=== PATIENT | male | born 1975 | race Caucasian/White ===

== ENCOUNTER 2016-10-20 09:52 | Emergency (ER) | payer OTHER ==
[~2016-10-20] VITALS: Ht 180.3 cm; Wt 136.5 kg
--- NOTE | ~2016-10-20 | EKG ---
[place] [address] [facility] [place] [address] ELECTROCARDIOGRAM REPORT Name: MOHINI COX Room #: DEP ANDALUSIA HEALTHYisel#: [id number] Admission: 10/20/16 Attend Phys: Discharge: 10/20/16 Date of : 71 Report #: [id number] THIS REPORT FOR: //name// [facility] ED Test Date: 2016-10-20 Test Time: 10:23:49 Pat Name: MOHINI COX Department: Room: Gender: M [employer] Coordinator: MZOOK : 1975 Requested By: Vesna Méndez Order Number: [id number] MD: Willard Robbins Measurements Intervals [place] Rate: 98 P: 30 LA: 152 QRS: -16 QRSD: 88 T: 108 QT: 371 QTc: 474 Interpretive Statements Sinus rhythm Probable left atrial enlargement LVH with secondary repolarization abnormality Anterior ST elevation, probably due to LVH No previous ECG available for comparison Electronically Signed On 10-20-2016 14:32:50 CDT by Willard Robbins [email or web address] <ELECTRONICALLY SIGNED> By: Willard Robbins MD 10/20/16 1432 1023 102 Willard Robbins MD /DRE
[2016-10-20 11:05] LABS: ABSOLUTE NEUTROPHILS 5.6 thou/uL (1.4-8.2); BASOPHILS 1.2 % (0.0-2.0); EOSINOPHILS 2.6 % (0.0-3.0); HEMATOCRIT 46.6 % (42.0-52.0); HEMOGLOBIN 16.6 gm/dL (14.0-18.0); LYMPHOCYTES 16.4 % (24.0-44.0); MANUAL DIFF NO; MCH 32.7 pg (26.0-34.0); MCHC 35.7 g/dL (28.0-37.0); MCV 91.5 fL (80.0-100.0); MONOCYTES 7.4 % (1.0-8.0); PLATELET COUNT 268 thou/uL (150-400); POLYS 72.4 % (36.0-66.0); RBC 5.09 mil/uL (4.50-6.00); RDW 12.9 % (10.5-14.5); WBC 7.7 thou/uL (4.0-11.0)
[2016-10-20 11:25] LABS: CALCIUM 8.8 mg/dL (8.5-10.1); POTASSIUM 3.5 mmol/L (3.5-5.1)
[2016-10-20 11:39] LABS: PLATELET ESTIMATE NORMAL
[2016-10-20] MEDS ORDERED: DELTASONE20 MG PO (12:37)
[2016-10-20] MEDS ORDERED: LISINOPRIL20 MG PO (12:37)
[2016-10-20 12:49] VITALS: BP 145/111
== END 2016-10-20 13:11 | disposition home or self-care (01) ==
LOC: ER 09:52
PROVIDERS: Emergency Medicine
DX: G51.0 Bell's palsy (principal); I10 Essential (primary) hypertension; F17.210 Nicotine dependence, cigarettes, uncomplicated; F12.10 Cannabis abuse, uncomplicated